=== PATIENT | male | born 1965 | race Caucasian/White ===

== ENCOUNTER 2016-08-25 17:57 | Inpatient (IN) | payer OTHER ==
[~2016-08-25] VITALS: Ht 185.4 cm; Wt 141.6 kg
--- NOTE | ~2016-08-25 | EKG ---
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
--- NOTE | ~2016-08-25 | 2DMMODE ---
[place] [address] [facility] [employer] [address] 2 D/M-MODE ECHOCARDIOGRAM Name: DENA GOMES Room #: 217-P ADM IN M.R.#: [id number] Admission: 08/25/16 Attend Phys: John Mayes Discharge: Date of : 67 Date of Service: 08/27/16 1231 Report #: [id number] THIS REPORT FOR: //name// APPROVED REPORT Study performed: 08/27/2016 10:52:39 EXAM: Comprehensive 2D, Doppler, and color-flow Echocardiogram Patient Location: Bedside Room #: 217 Blood Pressure: 163/100 mmHg HR: 55 bpm Other Information Study Quality: Good Indications Diabetes Hypertension/HDD 2D Dimensions RVDd: 37.45 mm LVEF(%): 74.36 (>50%) IVSd: 15.24 (7-11mm) LVOT Diam: 26.12 (18-24mm) LVDd: 54.41 mm PWd: 14.49 (7-11mm) Ascending Aorta: 35.24 mm LVDs: 30.65 (25-40mm) IVC: 20.00 mm Aortic Root: 39.61 mm Brothers's LVEF: 74.36 % Volumes Left Atrial Volume (Systole) Single Plane 4CH: 54.81 mL Single Plane 2CH: 60.19 mL LA ESV Index: 26.00 mL/m2 Aortic Valve AoV Peak Bernard.: 1.12 m/s AO Peak Gr.: 5.03 mmHg LV Max P.36 mmHg LV Max: 0.92 m/s Mitral Valve E/A Ratio: 0.8 MV Decel. Time: 223.54 ms MV E Max Bernard.: 0.66 m/s [facility] [address] [place] [address] 2 D/M-MODE ECHOCARDIOGRAM Name: DENA GOMES Room #: 217-[facility] IN [facility].#: [id number] Admission: 08/25/16 Attend Phys: John Mayes Discharge: Date of : 67 Date of Service: 08/27/16 1231 Report #: [id number] MV A Bernard.: 0.80 m/s MV PHT: 64.83 ms Pulmonary Valve PV Peak Bernard.: 0.83 m/s PV Peak Gr.: 2.77 mmHg Pulmonary Vein P Vein S: 41.4 m/s P Vein D: 35.6 m/s P Vein A Dur.: 21.9 m/s PVa Duration: 120 Tricuspid Valve RAP Estimate: 5.00 mmHg Left Ventricle The left ventricle is normal size. There is normal LV segmental wall motion. Mild to moderate concentric left ventricular hypertrophy. The left ventricular systolic function is normal. The left ventricular ejection fraction is within the normal range. LVEF is 55-60%. Grade I - abnormal relaxation pattern. Right Ventricle The right ventricle is normal size. The right ventricular systolic function is normal. Atria The left atrium size is normal. The right atrium size is normal. Aortic Valve The aortic valve is normal in structure. Mild aortic valve sclerosis. No aortic regurgitation is present. There is no aortic valvular stenosis. Mitral Valve The mitral valve is normal in structure. Mild mitral regurgitation. No evidence of mitral valve stenosis. Tricuspid Valve The tricuspid valve is normal in structure. There is no tricuspid valve regurgitation noted. Pulmonic Valve The pulmonary valve is normal in structure. Trace pulmonic regurgitation. [facility] [address] [place] [address] 2 D/M-MODE ECHOCARDIOGRAM Name: SHALA GOMESBennie Ruffin Room #: 217-P [facility] IN .R.#: [id number] Admission: 08/25/16 Attend Phys: John Mayes Discharge: Date of : 67 Date of Service: 08/27/16 1231 Report #: [id number] [place] The aortic root is normal in size. IVC is normal in size and collapses >50% with inspiration. Pericardium There is no pericardial effusion. <Conclusion> The left ventricle is normal size. Mild to moderate concentric left ventricular hypertrophy. The left ventricular systolic function is normal. Grade I - abnormal relaxation pattern. The right ventricle is normal size. The left atrium size is normal. The aortic valve is normal in structure. Mild aortic valve sclerosis. Mild mitral regurgitation. <ELECTRONICALLY SIGNED> By: Marvel Mtz MD 08/27/16 1231 1231 1231 Marvel Mtz MD /INF
--- NOTE | ~2016-08-25 | HC ---
[facility] [place] [address] CONSULTATION Name: DENA GOMES Room #: 217-P [facility] IN ..#: [id number] Admission: 08/25/16 Attend Phys: John Mayes MD Discharge: 08/28/16 Date of : 67 Report #: [id number] THIS REPORT FOR: //name// CC: MARTA physician/PCP John Mayes DATE OF SERVICE: 08/26/2016 RENAL CONSULTATION REASON FOR CONSULTATION: Accelerated hypertension. HISTORY OF PRESENT ILLNESS: This 51-year-old male has a known history of chronic kidney disease, diabetes mellitus, exogenous obesity and obstructive sleep apnea. He was admitted to [facility] after presenting with headache. The patient has recently seen ____ for the first time and was started on spironolactone. He has known longstanding chronic hypertension, which has been difficult to control. He reports that he is compliant with use of CPAP, but does not eat properly and does not monitor his glucoses regularly. His typical blood sugar is in the 200+ range. He denies previous history of nephrolithiasis, gross hematuria or urinary tract infection. PAST MEDICAL HISTORY: Remarkable for nephrolithiasis with previous lithotripsy, hypertension and diabetes mellitus. MEDICATIONS: On admission include amlodipine, vitamin D, gabapentin, naproxen, metformin, spironolactone, losartan, insulin including FlexTouch and Humalog. PERSONAL AND SOCIAL HISTORY: The patient does not smoke, use alcohol or have any history of substance abuse. FAMILY HISTORY: Remarkable for hypertension and diabetes mellitus. REVIEW OF SYSTEMS: Remarkable for intermittent pedal edema. He denies rash. He denies epistaxis. He denies shortness of breath, productive cough, hemoptysis, chest pain, palpitations, nausea, vomiting or diarrhea. PHYSICAL EXAMINATION: GENERAL: Reveals an obese, well-developed male appearing his stated age, in no acute distress. VITAL SIGNS: Blood pressure 152/77, temperature 36.3, pulse 88, respirations 18. SKIN: Warm and dry without rash or erythema. There is no gross clubbing, cyanosis or adenopathy. EXTREMITIES: There is trace edema bilaterally. [facility] [address] [place] [address] CONSULTATION Name: DENA GOMES Room #: 217-P [facility] IN [facility].#: [id number] Admission: 08/25/16 Attend Phys: John Mayes MD Discharge: 08/28/16 Date of : 67 Report #: [id number] HEENT: The head is normocephalic and atraumatic. The sclerae are white. The pharynx is benign. NECK: Supple. LUNGS: Lung tolbert are grossly clear to percussion and auscultation. CARDIOVASCULAR: Reveals a regular rate and rhythm without rub. ABDOMEN: Soft and nontender, without palpable mass or organomegaly. NEUROLOGIC: Reveals the patient to be alert and cooperative with a nonfocal exam. DIAGNOSTIC DATA: Available at the time of consultation include sodium 140, potassium 3.5, chloride 103, CO2 of 26, BUN 15, creatinine 0.8, glucose 235. Albumin 3.8, cholesterol 269, triglycerides 293, LDL 157. White blood cell count 7100, hemoglobin 14.7, hematocrit 42.6, platelet count 205,000. Urinalysis is pending. ASSESSMENT: 1. Uncontrolled hypertension requiring institution of Cardene, which is now being converted to carvedilol, lisinopril and amlodipine therapy. 2. Diabetes mellitus, poorly controlled. 3. Exogenous obesity with sleep apnea. 4. Dietary noncompliance. I emphasized with the patient and his family the importance of dietary intervention in the form of a 2 g sodium, weight loss, diabetes related diet. We will continue to adjust his oral antihypertensive medications to gain better blood pressure control. Hemoglobin A1c will be obtained. We will continue to follow the patient while hospitalized for further blood pressure management. Please see orders. <ELECTRONICALLY SIGNED> By: Chay Gipson MD 08/28/16 1721 0557 1115 Chay Gipson MD /nt
--- NOTE | ~2016-08-25 | D ---
[facility] [place] [address] DISCHARGE SUMMARY Name: DENA GOMES Room #: 217-P ADM IN M.R.#: [id number] Admission: 08/25/16 Attend Phys: John Mayes MD Discharge: Date of : 67 Report #: [id number] THIS REPORT FOR: //name// CC: MARTA physician/PCP John Mayes DATE OF SERVICE: 08/28/2016 DATE OF ADMISSION: 08/25/2016. DATE OF DISCHARGE: 08/28/2016. HISTORY OF PRESENT ILLNESS: The patient is a 51-year-old man with history of out of control hypertension, who came to the hospital for hypertensive urgency. Blood pressure was 202/104, and he was having headaches and dizziness. Please refer to the admission H and P for details. HOSPITALIZATION COURSE: The patient was hospitalized at [facility]. CT of the brain was unremarkable. Safety Equipment Testing Specialist and machine cell tuber were consulted. The patient had cardiac echocardiogram, that showed LVH, grade 1 diastolic dysfunction. He was started on lisinopril instead of losartan. He was also started on Coreg, as well as amlodipine was continued. Spironolactone was continued as well, in addition to Lasix, that was started here. Of note, on admission, the patient had mild lower extremity swelling, that has resolved. The patient complained of neck pain and headache. MRI of the brain was obtained, that showed chronic changes, but small lacunar CVA could not be ruled out. Carotid Doppler ultrasound showed no evidence of hemodynamically significant stenosis. Renal arterial ultrasound was also obtained, that showed no stenosis. Currently, the patient's condition is acceptable, and patient feels much better. His dizziness has resolved. Blood pressure mostly remains systolic in the 160s, and diastolic in 90-100. He is asymptomatic. His physical examination and overall condition is acceptable as documented in the patient's chart. Of note, the patient's cardiac enzymes remained negative, and his kidney function also remained normal. DISCHARGE DIAGNOSES: 1. Malignant hypertension, presented with hypertensive urgency. Blood pressure is better controlled as noted above. Renal artery Doppler showed no stenosis, and cardiac echocardiogram revealed LVH, with grade 1 diastolic dysfunction. 2. Degenerative joint disease, based on MRI report, involving C-spine. Likely cause of neck pain. [facility] [address] [place] [address] DISCHARGE SUMMARY Name: SHALA GOMESBennie Ruffin Room #: 217-P [facility] IN [facility].#: [id number] Admission: 08/25/16 Attend Phys: John Mayes MD Discharge: Date of : 67 Report #: [id number] 3. Diabetes mellitus type 2, out of control, hemoglobin A1c 8.8%. Strongly advised to follow the diet closely, and try to lose weight. 4. Morbid obesity. 5. Insulin resistance syndrome. DISCHARGE MEDICATIONS: Please refer to the medication reconciliation list in EMR. DISPOSITION: Follow up with primary care physician and radiation control worker in 1-2 weeks. The patient may need further workup for endocrine, hypertension. I spent more than 30 minutes to coordinate the patient's discharge from the hospital. By: 1148 1222 John Mayes MD /nt
--- NOTE | ~2016-08-25 | HC ---
[facility] [place] [address] CONSULTATION Name: DENA GOMES Room #: 217-P ADM IN M.R.#: [id number] Admission: 08/25/16 Attend Phys: John Mayes MD Discharge: Date of : 67 Report #: [id number] THIS REPORT FOR: //name// CC: MARTA physician/PCP Silvino Hong DATE OF SERVICE: 08/26/2016 INDICATION: Hypertensive urgency. HISTORY OF PRESENT ILLNESS: This is a 51-year-old gentleman with a longstanding history of hypertension presenting with weakness and fatigue. He reports being on multiple medications, not adequately treating his blood pressure. Recently, Aldactone was added to his medical regimen. Yesterday, he developed fatigue, headaches and weakness. In the ER, he was noted to have a systolic blood pressure greater than 200 mmHg. He was started on hydralazine, labetalol and nicardipine. PAST MEDICAL HISTORY: Hypertension, uncontrolled. Edema, obstructive sleep apnea, diabetes mellitus. ALLERGIES: None. MEDICATIONS AT HOME: Include amlodipine 10 mg twice a day, metformin twice a day, naproxen, Aldactone 50 mg daily, losartan 100 mg daily. SOCIAL HISTORY: Denies tobacco use. FAMILY HISTORY: Negative for premature CAD. REVIEW OF SYSTEMS: A full 10-point review of systems was performed. Only the pertinent positives and negatives are described in the HPI. PHYSICAL EXAMINATION: VITAL SIGNS: Blood pressure is 160s-180s/90, heart rate is 70 beats per minute. GENERAL APPEARANCE: An overweight male in no acute respiratory distress. HEAD AND EYES: Normocephalic. Sclerae are anicteric. ENT: Oral mucosa moist. NECK: Supple. LUNGS: Clear to auscultation. CARDIAC: Regular rate and rhythm, S1, S2 positive. ABDOMEN: Soft. EXTREMITIES: No major joint deformities. Positive for lower extremity edema. ECG revealed sinus rhythm, otherwise unremarkable. LABORATORY VALUES: Serial troponins are negative. White count is 7.1, [facility] [address] [place] [address] CONSULTATION Name: DENA GOMES Room #: [address] [place] [address] [place] [facility].#: [id number] Admission: 08/25/16 Attend Phys: John Mayes MD Discharge: Date of : 67 Report #: [id number] hemoglobin 14.7. Sodium is 140, creatinine is 0.8. ASSESSMENT: 1. Hypertensive urgency, he is on multiple medications, not adequately controlling his blood pressure. Part of the problem is cost. We will stop losartan and add an ZOILA inhibitor. Would also like renal input as he seems to have refractory hypertension. He will need a renal ultrasound to rule out renal artery stenosis. 2. Diabetes mellitus, continue with regimen. 3. Edema, will need diuretic therapy, again would like renal input. Apparently, he developed issues with hydrochlorothiazide. 4. Obstructive sleep apnea, continue with CPAP mask. 5. Cardiovascular, offers no specific cardiac complaints. We will need an echo to assess his left ventricular function. Thank you for allowing me to participate in the care of your patient. <ELECTRONICALLY SIGNED> By: Marvel Mtz MD 08/27/16 0739 0959 1412 Marvel Mtz MD /nt
[2016-08-25 18:03] VITALS: BP 202/124
[2016-08-25] MEDS ORDERED: NEURONTIN 300300 M1 PO (19:15)
[2016-08-25] MEDS ORDERED: NAPROSYN500 MG PO (19:15)
[2016-08-25] MEDS ORDERED: GLUCOPHAGE XR500 M1 PO (19:15)
[2016-08-25] MEDS ORDERED: COZAAR100 MG PO (19:16)
[2016-08-25] MEDS ORDERED: ALDACTONE50 MG PO (19:16)
[2016-08-25] MEDS ORDERED: NORVASC10 MG PO (19:16)
[2016-08-25] MEDS ORDERED: TRESIBA FL100 UNIT/1 SUBQ (19:17)
[2016-08-25] MEDS ORDERED: HUMALOG100 UNIT/1 SUBQ (19:18)
[2016-08-25 19:19] LABS: ABSOLUTE NEUTROPHILS 4.8 thou/uL (1.4-8.2); BASOPHILS 0.7 % (0.0-2.0); EOSINOPHILS 2.9 % (0.0-3.0); HEMATOCRIT 42.6 % (42.0-52.0); HEMOGLOBIN 14.7 gm/dL (14.0-18.0); LYMPHOCYTES 20.5 % (24.0-44.0); MANUAL DIFF NO; MCH 28.7 pg (26.0-34.0); MCHC 34.5 g/dL (28.0-37.0); MCV 83.4 fL (80.0-100.0); MONOCYTES 7.9 % (1.0-8.0); PLATELET COUNT 205 thou/uL (150-400); RBC 5.11 mil/uL (4.50-6.00); WBC 7.1 thou/uL (4.0-11.0)
[2016-08-25] MEDS ORDERED: POTASSIUM GLUCO99 M2 PO (19:19)
[2016-08-25] MEDS ORDERED: [UNRECOGNIZED DRUG - OTHER] (19:19)
[2016-08-25 19:31] LABS: APTT 26.1 Seconds (24.5-32.8); INR 1.1
[2016-08-25 19:34] LABS: ANION GAP 11 mmol/L (7-16); BUN 15 mg/dL (7-18); CALCIUM 8.5 mg/dL (8.5-10.1); CHLORIDE 103 mmol/L (98-107); CO2 26 mmol/L (21-32); CREATININE 0.8 mg/dL (0.7-1.3); GLUCOSE 235 mg/dL (74-106); POTASSIUM 3.5 mmol/L (3.5-5.1); SODIUM 140 mmol/L (136-145)
[2016-08-25 19:37] LABS: ALKALINE PHOSPHATASE 83 U/L (46-116); SGOT 38 U/L (15-37); SGPT 70 U/L (30-65); TOTAL BILIRUBIN 0.6 mg/dL (<0.1-1.0); TOTAL PROTEIN 6.8 g/dL (6.4-8.2)
[2016-08-25 19:38] LABS: ALBUMIN 3.8 g/dL (3.4-5.0); NT-PRO BRAIN NAT PEPTIDE 67 pg/mL (<300); TROPONIN-I < 0.04 ng/mL (<0.04-0.07)
[2016-08-25 21:27] VITALS: BP 167/97
[2016-08-25 21:28] VITALS: BP 168/92
[2016-08-25] MEDS ORDERED: VITAMIN D2000 UNIT PO (22:14)
[2016-08-25 22:24] VITALS: BP 179/91
[2016-08-25 23:50] VITALS: BP 187/94
[2016-08-25 23:59] VITALS: BP 187/94
[2016-08-26] VITALS (14 sets, daily range): BP systolic 112–166; BP diastolic 73–96
[2016-08-26 04:25] LABS: CHOLESTEROL 269 mg/dL (<200); HDL CHOLESTEROL 54 mg/dL (>40); LDL CHOLESTEROL 157 mg/dL (<100); TRIGLYCERIDE 293 mg/dL (<150); VLDL 59 mg/dL (<40)
[2016-08-26 04:35] LABS: SERUM ASSESSMENT Clear
[2016-08-26 16:39] LABS: URINE BILIRUBIN NEGATIVE (Negative); URINE BLOOD NEGATIVE (Negative); URINE COLOR YELLOW; URINE GLUCOSE-RANDOM* 1+ (Negative); URINE KETONES NEGATIVE (Negative); URINE NITRITE NEGATIVE (Negative); URINE PROTEIN (DIPSTICK) NEGATIVE (Negative); URINE SPECIFIC GRAVITY 1.015 (1.003-1.035); URINE UROBILINOGEN 0.2 E.U./dl (0.2-1.0)
[2016-08-27 01:05] LABS: GLYCOHEMOGLOBIN (HGB A1C) 8.8 % (4.8-5.6)
[2016-08-27 02:51] VITALS: BP 143/95
[2016-08-27 03:13] LABS: CALCIUM 8.2 mg/dL (8.5-10.1); CREATININE 1.1 mg/dL (0.7-1.3); POTASSIUM 3.6 mmol/L (3.5-5.1)
[2016-08-27 07:45] VITALS: BP 163/100
[2016-08-27 11:50] VITALS: BP 144/97
[2016-08-27 15:50] VITALS: BP 152/91
[2016-08-27 19:25] VITALS: BP 168/104
[2016-08-27 23:34] VITALS: BP 153/101
[2016-08-28 04:20] VITALS: BP 153/99
[2016-08-28 08:49] VITALS: BP 183/114
[2016-08-28 10:05] VITALS: BP 183/114
[2016-08-28] MEDS ORDERED: HYDRALAZINE 5050 MG PO (11:51)
[2016-08-28] MEDS ORDERED: TRESIBA FL100 UNIT/1 SUBQ (11:51)
[2016-08-28] MEDS ORDERED: LISINOPRIL40 MG PO (11:51)
[2016-08-28] MEDS ORDERED: CARVEDILOL12.5 MG PO (11:51)
[2016-08-28] MEDS ORDERED: LASIX 40 MG TAB40 M2 PO (13:33)
[2016-08-28 13:48] VITALS: BP 183/114
[2016-08-28] MEDS ORDERED: POTASSIUM20 PO (14:04)
[2016-08-28 14:34] VITALS: BP 183/114
[2016-08-30 15:11] LABS: KAPPA FREE LIGHT CHAINS 12.99 mg/L (3.30-19.40); KAPPA/LAMBDA RATIO 1.08 (0.26-1.65); LAMBDA FREE LIGHT CHAINS 12.04 mg/L (5.71-26.30)
[2016-08-31 16:07] LABS: c-ANCA <1:20 titer (Neg:<1:20); p-ANCA <1:20 titer (Neg:<1:20)
== END 2016-08-28 13:00 | disposition home or self-care (01) | DRG 683 ==
LOC: ER 17:57 → 2N 21:03 → EROBS 21:03 → 2N 21:28
PROVIDERS: Emergency Medicine; Internal Medicine Endocrinology, Diabetes & Metabolism; Internal Medicine Nephrology; Nurse Practitioner
DX: I12.9 Hypertensive chronic kidney disease with stage 1 through stage 4 chronic kidney disease, or unspecified chronic kidney disease (principal); N17.9 Acute kidney failure, unspecified; Z68.41 Body mass index [BMI] 40.0-44.9, adult; I16.0 Hypertensive urgency; E11.22 Type 2 diabetes mellitus with diabetic chronic kidney disease; M47.892 Other spondylosis, cervical region; G47.33 Obstructive sleep apnea (adult) (pediatric); N18.9 Chronic kidney disease, unspecified; E11.65 Type 2 diabetes mellitus with hyperglycemia; E78.5 Hyperlipidemia, unspecified; E66.01 Morbid (severe) obesity due to excess calories; Z79.4 Long term (current) use of insulin; Z91.11 Patient's noncompliance with dietary regimen; Z87.442 Personal history of urinary calculi; Z79.899 Other long term (current) drug therapy; Z83.3 Family history of diabetes mellitus; Z82.49 Family history of ischemic heart disease and other diseases of the circulatory system; Z80.8 Family history of malignant neoplasm of other organs or systems; Z82.3 Family history of stroke
CPT/HCPCS: 10081